=== PATIENT | female | born 1970 | race American Indian/Alaskan Native ===

== ENCOUNTER 2020-02-17 18:01 | Emergency (ER) | payer BC ==
[2020-02-17 18:09] VITALS: BP 127/96
[2020-02-17] MEDS ORDERED: KETOROLAC 60 MG/2 ML INJ IM ONE (18:27)
[2020-02-17] MEDS ORDERED: dexAMETHasone 20 MG/5 ML VIAL IM ONE (18:27)
--- NOTE | 2020-02-17 18:30 | Emergency Department Report ---
ED Back Pain/Injury HPI - General Chief Complaint: Back Pain/Injury Stated Complaint: BACK PAIN Time Seen by Provider: 02/17/20 18:23 Source: patient Limitations: No Limitations - History of Present Illness Initial Comments: Patient is a 49-year-old female presents emergency room complaints of lower back pain that began 2 days ago. She states that the pain radiates to her bilateral hips. She states her pain is worse with movement, coughing, sneezing, sitting down. She denies any fall or injury. 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 No fever, vomiting, diarrhea, dysuria, dark urine, odor to the urine, urinary frequency, numbness, weakness, bowel or bladder incontinence. No past medical history. No allergies to medications. - Related Data Previous Rx's Medication Instructions Recorded Last Taken Type Menthol/Camphor [Avella [place] 1 applicatio TP BID #18 oint...g. 02/17/20 Unknown Rx Ointment] Naproxen [EC-Naprosyn] 500 mg PO BID PRN #14 tablet. 02/17/20 Unknown Rx Prednisone [predniSONE 10 mg 10 mg PO .TAPER #1 tab.ds.pk 02/17/20 Unknown Rx (6-Day Pack, 21 Tabs)] methOCARBAMOL [Robaxin TAB] 500 mg PO BID PRN #14 tab 02/17/20 Unknown Rx traMADoL [Ultram 50 MG tab] 50 mg PO Q6HR PRN #12 tablet 02/17/20 Unknown Rx Allergies Allergy/AdvReac Type Severity Reaction Status Date / Time No Known Allergies Allergy Unverified 02/17/20 18:07 ED Review of Systems ROS: Stated complaint: BACK PAIN Other details as noted in HPI Comment: All other systems reviewed and negative ED Past Medical Hx - Past Medical History Previous Medical History?: Yes Hx Hypertension: Yes - Surgical History Past Surgical History?: Yes Hx Breast Surgery: Yes - Medications Home Medications: Home Medications Medication Instructions Recorded Confirmed Last Taken Type Menthol/Camphor [Avella [place] 1 applicatio TP BID #18 oint...g. 02/17/20 Unknown Rx Ointment] Naproxen [EC-Naprosyn] 500 mg PO BID PRN #14 tablet. 02/17/20 Unknown Rx Prednisone [predniSONE 10 mg 10 mg PO .TAPER #1 tab.ds.pk 02/17/20 Unknown Rx (6-Day Pack, 21 Tabs)] methOCARBAMOL [Robaxin TAB] 500 mg PO BID PRN #14 tab 02/17/20 Unknown Rx traMADoL [Ultram 50 MG tab] 50 mg PO Q6HR PRN #12 tablet 02/17/20 Unknown Rx ED Physical Exam - General Limitations: No Limitations General appearance: alert, in no apparent distress - Head Head exam: Present: atraumatic, normocephalic - Eye Eye exam: Present: normal appearance - ENT ENT exam: Present: mucous membranes moist - Neck Neck exam: Present: normal inspection, full ROM. Absent: tenderness - Respiratory Respiratory exam: Present: normal lung sounds bilaterally. Absent: respiratory distress, wheezes, rales, rhonchi, stridor, chest wall tenderness, accessory muscle use, decreased breath sounds, prolonged expiratory - Cardiovascular Cardiovascular Exam: Present: regular rate, normal rhythm, normal heart sounds. Absent: systolic murmur, diastolic murmur, rubs, gallop - Back Exam Back exam: Present: normal inspection, full ROM, paraspinal tenderness (bilateral paraspinal lumbar ttp, no midline C-spine, T-spine, or L-spine ttp, no step offs, no deformities). Absent: vertebral tenderness - Neurological Exam Neurological exam: Present: alert, oriented X3, CN II-XII intact, normal gait. Absent: motor sensory deficit - Psychiatric Psychiatric exam: Present: normal affect, normal mood - Skin Skin exam: Present: warm, dry, intact ED Course Vital Signs 02/17/20 18:07 Temperature 98.3 F Pulse Rate 109 H Respiratory 16 Rate Blood Pressure 127/96 [Right] O2 Sat by Pulse 100 Oximetry ED Medical Decision Making - Medical Decision Making Patient is a 49-year-old female presents emergency room complaints of lower back pain that began 2 days ago. She states that the pain radiates to her bilateral hips. She states her pain is worse with movement, coughing, sneezing, sitting down. She denies any fall or injury. 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 No fever, vomiting, diarrhea, dysuria, dark urine, odor to the urine, urinary frequency, numbness, weakness, bowel or bladder incontinence. No past medical history. No allergies to medications. on exam: bilateral paraspinal lumbar ttp, no midline C-spine, T-spine, or L-spine ttp, no step offs, no deformities, no focal neuro deficits. Patient has no clinical signs of cauda equinus or conus medullaris. Do not suspect acute aneurysm or dissection. Patient has no red flag warning signs of back pain, no trauma, no unexplained weight loss, no neuro deficits, age is not greater than 50, no fever, no IV drug use, no steroid use, no history of cancer. Patient given Toradol and dexamethasone IM and symptoms significantly improved and she was feeling better and ready to go home. Patient will be referred to orthopedic/spine and discussed the importance of follow-up. Discussed very strict return precautions with patient. Patient given prescription for naproxen, Robaxin, tramadol, prednisone, Avella balm ointment. Advised patient Please use medication as prescribed. May use ice pack, heating pad, rest, and epsom salt bath. Follow-up with the orthopedic/spine doctor. Return to emergency room immediately for any new or worsening symptoms. Critical care attestation.: If time is entered above; I have spent that time in minutes in the direct care of this critically ill patient, excluding procedure time. ED Disposition Clinical Impression: Low back pain Qualifiers: Chronicity: acute Back pain laterality: bilateral Sciatica presence: without sciatica Qualified Code(s): M54.5 - Low back pain Disposition: - TO HOME OR SELFCARE Is pt being admited?: No Does the pt Need Aspirin: No Condition: Stable Instructions: Acute Back Pain, Adult Additional Instructions: Please use medication as prescribed. May use ice pack, heating pad, rest, and epsom salt bath. Follow-up with the orthopedic/spine doctor. Return to emergen cy room immediately for any new or worsening symptoms. Prescriptions: Naproxen [EC-Naprosyn] 500 mg PO BID PRN #14 tablet. PRN Reason: Pain, Moderate (4-6) Prednisone [predniSONE 10 mg (6-Day Pack, 21 Tabs)] 10 mg PO .TAPER #1 tab.ds.pk methOCARBAMOL [Robaxin TAB] 500 mg PO BID PRN #14 tab PRN Reason: muscle relaxer Menthol/Camphor [Av[place] Ointment] 1 applicatio TP BID #18 oint...g. traMADoL [Ultram 50 MG tab] 50 mg PO Q6HR PRN #12 tablet PRN Reason: Pain , Severe (7-10) Referrals: [facility] [Provider Group] - 2-3 Days ROBY DICKENS II, MD [Staff Physician] - 2-3 Days Time of Disposition: 19:42 Print Language: [place]
== END 2020-02-17 20:10 | disposition home or self-care (01) ==
LOC: ED 18:01
DX: M54.5 Low back pain (principal); M25.551 Pain in right hip; M25.552 Pain in left hip; I10 Essential (primary) hypertension; Z98.890 Other specified postprocedural states; Z79.899 Other long term (current) drug therapy
CPT/HCPCS: 96372; 99282; J1100; J1885